=== PATIENT | male | born 1930 | race Caucasian/White ===

== ENCOUNTER 2016-07-08 10:07 | Observation (INO) | payer MEDICARE, OTHER ==
[~2016-07-08] VITALS: Ht 152.4 cm; Wt 56.8 kg
[2016-07-08] MEDS ORDERED: OPTIRAY 350 100 ML VIAL HMH IV ONE (10:08)
[2016-07-08] MEDS ORDERED: KETAMINE INJ 50 MG/ML VIAL IV ONE (14:11)
[2016-07-08] MEDS ORDERED: LIDOCAINE 2% SYR 5 ML IV ONE (14:11)
[2016-07-08] MEDS ORDERED: PROPOFOL 50ML VIAL IV ONE (14:11)
[2016-07-08] MEDS ORDERED: KETOROLAC 30 MG/ML VIAL ONE (16:25)
[2016-07-08 17:16] VITALS: BP_SYST 152; RESP 16; TEMP 98.5
[2016-07-08 17:48] VITALS: Ht 152.4 cm; Wt 56.8 kg
[2016-07-08] MEDS ORDERED: ACETAMINOPHEN 500 MG TAB PO PRN (18:05)
[2016-07-08 20:30] VITALS: BP_SYST 114; RESP 18; TEMP 97.8
[2016-07-08] MEDS ORDERED: PANTOPRAZOLE 40 MG TAB PO SCH (21:00)
[2016-07-08] MEDS: NEB-XOPENEX 0.63 MG/3 ML INH SCH ×2 (21:02→23:35)
[2016-07-08 23:40] VITALS: RESP 18
[2016-07-09] VITALS (8 sets, daily range): BP systolic 120–152; RESP 15–21; TEMP 97.3–98
[2016-07-09] MEDS: NEB-XOPENEX 0.63 MG/3 ML INH SCH ×6 (02:45→14:26)
[2016-07-09] MEDS ORDERED: LIDOCAINE 1% BUFFERED 1 ML SYR INTRADERM PRN (10:15)
[2016-07-09] MEDS ORDERED: LACT RINGERS 1,000 ML IV SCH (10:15)
[2016-07-09] MEDS ORDERED: NITROGLYCERIN 2% OINT 1 INCH PKT TOPICAL SCH (18:39)
== END 2016-07-09 15:53 | disposition home or self-care (01) ==
LOC: ENRESERVDT → ENRESERVTM → ER 10:07 → EMR 15:44 → ENPENDDIS 15:44 → PCU 17:00
PROVIDERS: ADMIT Internal Medicine; ATTEND Internal Medicine
DX: R07.9 Chest pain, unspecified (principal); R91.8 Other nonspecific abnormal finding of lung field; J18.9 Pneumonia, unspecified organism; Z87.19 Personal history of other diseases of the digestive system; M10.9 Gout, unspecified; R06.02 Shortness of breath; Z85.038 Personal history of other malignant neoplasm of large intestine; Z85.46 Personal history of malignant neoplasm of prostate; Z79.899 Other long term (current) drug therapy; Z96.611 Presence of right artificial shoulder joint; Z86.2 Personal history of diseases of the blood and blood-forming organs and certain disorders involving the immune mechanism
CPT/HCPCS: 31623; 31624; 31628; 71010; 71260; 76000; 80053; 82553; 83690; 83735; 83880; 84484; 85025; 85379; 85610; 85730; 87071; 87102; 87116; 87205; 87206; 87496; 87529; 87798; 87804; 88104; 88108; 88305; 89051; 93005; 94640; 96374; 97799; 99285; G0378; J1885; J2001; J2704; Q9967; 99223; 99233